=== PATIENT | male | born 1980 | race Caucasian/White ===

== ENCOUNTER 2020-11-09 07:18 | Day surgery (SDC) | payer BC ==
--- NOTE | 2020-11-02 12:21 | HP ---
DATE OF SURGERY: 11/09/2020 HISTORY OF PRESENT ILLNESS: The patient is a 40 year-old male presents with complaints of lipoma-like cyst on the left axilla and mid chest. He states these have been there for some time. These are getting bigger over the years. 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 PAST MEDICAL HISTORY: None. PAST SURGICAL HISTORY: None. ALLERGIES: NKDA. MEDICATIONS: None. FAMILY HISTORY: None. SOCIAL HISTORY: None. REVIEW OF SYSTEMS: CONSTITUTIONAL: Denies fever or chills. CHEST: Denies shortness of breath. CVS: Denies chest pain. ABDOMEN: Denies abdominal pain, nausea, vomiting, diarrhea, constipation or rectal bleeding. PHYSICAL EXAMINATION: GENERAL: No acute distress. CHEST: Nonlabored. No shortness of breath. CVS: Regular rate and rhythm. ABDOMEN: Soft, nontender. INTEGUMENTARY: About a 10 x 10 cm chest wall subcutaneous mass and a 4 x 4 cm left axilla subcutaneous mass. IMPRESSION: Subcutaneous mass of the left axilla and mid chest most likely consistent with lipoma. PLAN: Excision of subcutaneous mass of the left axilla and mid chest with Dr. Clark Sanchez. As dictated by Charlene Llamas NP.
[~2020-11-09 07:18] MED LIST: Lactated Ringers 1,000 ML IV ONE; Sensorcaine 0.25% 10 ML ONE
[2020-11-09] MEDS ORDERED: Lactated Ringers 1,000 ML IV SCH (08:00)
[2020-11-09] MEDS ORDERED: Versed 2 MG/2 ML Injection ONE (09:51)
[2020-11-09] MEDS ORDERED: DIPRIVAN 200 MG/20 ML IV ONE (09:51)
[2020-11-09] MEDS ORDERED: SUBLIMAZE 250 MCG/5 ML ONE (09:51)
[2020-11-09] MEDS ORDERED: Zofran 4 MG/2 ML VIAL ONE (10:11)
[2020-11-09] MEDS ORDERED: Decadron 4 MG INJ ONE (10:11)
[2020-11-09 11:42] VITALS: O2SAT 98
[2020-11-09 12:07] VITALS: BP 122/74; PULSE 74
--- NOTE | 2020-11-09 15:18 | OP ---
SURGERY DATE: 11/09/2020 SURGERY TIME: 957 PREOPERATIVE DIAGNOSIS: 1. 7 X 10 CM LEFT AXILLARY LIPOMA. 2. 4 X 3.5 CM MID CHEST LIPOMA. POSTOPERATIVE DIAGNOSIS: 1. 7 X 10 CM LEFT AXILLARY LIPOMA. 2. 4 X 3.5 CM MID CHEST LIPOMA. PROCEDURE: 1. Excision and closure of these 2 lipoma sites. SURGEON: Clark Sanchez M.D. SENIOR COMMISSIONS ANALYST: [facility] resident. ANESTHESIA: General. COMPLICATIONS: None. CONDITION: Stable. INDICATION: Patient with 2 large expanding lipomas. They are bothering him at work and they are enlarging. OPERATIVE PROCEDURE: He was taken to surgery. General anesthetic. The triplett had been placed in the holding area. Routine prep and drape. Time-out performed. The left axilla lipoma removed first. It was 7 X 10 X 6 cm incision. It was unilocular. It was removed in its entirety. Came out very nicely. Hemostasis obtained in electrocautery. Closed with 3-0 Vicryl, 4-0 Vicryl, and steri-strips. The more anterior presternal mid chest taken through a 3.5 cm incision. A 4 cm lipoma was taken. It was a little more multiloculated. It was removed. It was closed with 3-0 Vicryl and 4-0 Vicryl.
== END 2020-11-09 12:05 | disposition home or self-care (01) ==
LOC: SDC 07:18
PROVIDERS: ATTEND Surgery
DX: D17.1 Benign lipomatous neoplasm of skin and subcutaneous tissue of trunk (principal)
CPT/HCPCS: 88304; J1100; J2250; J2405; J2704; J3010